=== PATIENT | male | born 1955 | race Caucasian/White ===

== ENCOUNTER 2017-10-13 10:22 | Emergency (ER) | payer OTHER ==
[~2017-10-13] VITALS: Ht 177.8 cm; Wt 88.5 kg
[~2017-10-13 10:22] MED LIST: ALPR1 PO; ASPI81CH PO; BACL10 PO; BLOOD PRESSURE PILL; CYCL10 PO; ESCI20 PO; GABA300 PO; HYDACE5 PO; HYDCOR1TO TOP; METO100ER PO; METPRE4DP PO; OMEPRAZOLE MAGN20 MG PO; TRAZ100 PO; Zithromax250 MG PO
[2017-10-13] MEDS ORDERED: BUPRENORPHINE HC2 MG SL (11:08)
[2017-10-13 11:29] LABS: BASOPHILS ABSOLUTE AUTO 0.11 K/mm3 (0.00-0.23); BASOPHILS PERCENT AUTO 1 % (0-2); EOSINOPHILS ABSOLUTE AUTO 0.79 K/mm3 (0.00-0.68); EOSINOPHILS PERCENT AUTO 9 % (0-6); Hematocrit 43.4 % (37.0-53.0); Hemoglobin 13.5 g/dL (13.5-17.5); IMMATURE GRAN ABSOLUTE AUTO 0.02 K/mm3 (0.00-0.10); IMMATURE GRAN PERCENT AUTO 0 % (0-1); LYMPHOCYTES ABSOLUTE AUTO 3.18 K/mm3 (0.84-5.20); LYMPHOCYTES PERCENT AUTO 36 % (21-46); MONOCYTES ABSOLUTE AUTO 0.94 K/mm3 (0.16-1.47); MONOCYTES PERCENT AUTO 11 % (4-13); Mean Corpuscular HGB 27.2 pg (26.0-34.0); Mean Corpuscular HGB Conc 31.1 g/dL (31.5-36.5); Mean Corpuscular Volume 87 fL (80-100); NEUTROPHILS ABSOLUTE AUTO 3.87 K/mm3 (1.96-9.15); NEUTROPHILS PERCENT AUTO 44 % (41-73); Platelet Count 294 K/mm3 (150-400); RDW Coefficient Variation 15.7 % (11.7-14.2); RDW Standard Deviation 49.4 fL (35.1-46.3); Red Blood Cell Count 4.97 M/mm3 (4.30-5.90); White Blood Cell Count 8.91 K/mm3 (4.00-11.30)
[2017-10-13 11:46] LABS: Alanine Aminotransfer (ALT/SGP 61 U/L (12-78); Albumin/Globulin Ratio 0.6 (0.8-1.8); Alk Phos 117 U/L (50-136); Anion Gap 12 mmol/L (6-16); Aspartate Aminotrans (AST/SGOT 56 U/L (12-37); Bilirubin, Total 0.3 mg/dL (0.1-1.0); Blood Urea Nitrogen 18 mg/dL (8-24); Bun/Creatinine Ratio 15.4 (12.0-20.0); CO2, Blood 17 mmol/L (21-32); Calcium, Blood 8.8 mg/dL (8.5-10.1); Chloride, Blood 113 mmol/L (98-108); Creatinine, Blood 1.17 mg/dL (0.60-1.20); Globulin, Blood 4.7 g/dL (2.2-4.0); Glomerular Filtration Rate >60 (60-); Glucose, Blood 93 mg/dL (70-99); Potassium, Blood 4.2 mmol/L (3.5-5.5); Sodium, Blood 142 mmol/L (136-145); Total Protein, Blood 7.7 g/dL (6.4-8.2)
== END 2017-10-13 13:08 | disposition home or self-care (01) ==
LOC: ER 10:22
PROVIDERS: Emergency Medicine
DX: R41.82 Altered mental status, unspecified (principal); T40.4X5A Adverse effect of other synthetic narcotics, initial encounter; Z79.899 Other long term (current) drug therapy; Z79.891 Long term (current) use of opiate analgesic; Z79.82 Long term (current) use of aspirin; Z79.52 Long term (current) use of systemic steroids; Z79.2 Long term (current) use of antibiotics; J44.9 Chronic obstructive pulmonary disease, unspecified; I25.2 Old myocardial infarction; F17.210 Nicotine dependence, cigarettes, uncomplicated
CPT/HCPCS: 36415; 80053; 82140; 85025; 93005; 93010; 94640; 99283; J7030

== ENCOUNTER 2018-01-11 10:11 | Emergency (ER) | payer OTHER ==
[~2018-01-11] VITALS: Ht 177.8 cm; Wt 81.7 kg
[~2018-01-11 10:11] MED LIST changes: +BUPRENORPHINE HC2 MG SL
== END 2018-01-11 11:21 | disposition left against medical advice (07) ==
LOC: ER 10:11
DX: L20.9 Atopic dermatitis, unspecified (principal); Z76.5 Malingerer [conscious simulation]; J44.9 Chronic obstructive pulmonary disease, unspecified; I25.2 Old myocardial infarction; F17.210 Nicotine dependence, cigarettes, uncomplicated; Z79.899 Other long term (current) drug therapy; Z79.82 Long term (current) use of aspirin; Z86.73 Personal history of transient ischemic attack (TIA), and cerebral infarction without residual deficits
CPT/HCPCS: 99282

== ENCOUNTER 2018-09-26 02:23 | Inpatient (IN) | payer MEDICARE, OTHER ==
[~2018-09-26] VITALS: Ht 172.7 cm; Wt 81.4 kg
[2018-09-26 03:08] LABS: BASOPHILS ABSOLUTE AUTO 0.12 K/mm3 (0.00-0.23); BASOPHILS PERCENT AUTO 1 % (0-2); EOSINOPHILS ABSOLUTE AUTO 0.45 K/mm3 (0.00-0.68); EOSINOPHILS PERCENT AUTO 2 % (0-6); Hematocrit 42.2 % (37.0-53.0); Hemoglobin 13.3 g/dL (13.5-17.5); IMMATURE GRAN ABSOLUTE AUTO 0.14 K/mm3 (0.00-0.10); IMMATURE GRAN PERCENT AUTO 1 % (0-1); LYMPHOCYTES ABSOLUTE AUTO 2.42 K/mm3 (0.84-5.20); LYMPHOCYTES PERCENT AUTO 11 % (21-46); MONOCYTES ABSOLUTE AUTO 1.39 K/mm3 (0.16-1.47); MONOCYTES PERCENT AUTO 6 % (4-13); Mean Corpuscular HGB 28.6 pg (26.0-34.0); Mean Corpuscular HGB Conc 31.5 g/dL (31.5-36.5); Mean Corpuscular Volume 91 fL (80-100); Mean Platelet Volume 10.2 fL (9.1-12.4); NEUTROPHILS PERCENT AUTO 80 % (41-73); Platelet Count 269 K/mm3 (150-400); RDW Standard Deviation 46.8 fL (35.1-46.3); Red Blood Cell Count 4.65 M/mm3 (4.30-5.90); White Blood Cell Count 22.12 K/mm3 (4.00-11.30)
[2018-09-26 03:29] LABS: Alanine Aminotransfer (ALT/SGP 74 U/L (12-78); Albumin, Blood 2.9 g/dL (3.4-5.0); Albumin/Globulin Ratio 0.7 (0.8-1.8); Alk Phos 198 U/L (50-136); Anion Gap 7 mmol/L (6-16); Aspartate Aminotrans (AST/SGOT 63 U/L (12-37); Bilirubin, Total 0.4 mg/dL (0.1-1.0); Blood Urea Nitrogen 16 mg/dL (8-24); Bun/Creatinine Ratio 13.3 (12.0-20.0); CO2, Blood 23 mmol/L (21-32); Calcium, Blood 8.1 mg/dL (8.5-10.1); Chloride, Blood 111 mmol/L (98-108); Globulin, Blood 4.1 g/dL (2.2-4.0); Glomerular Filtration Rate >60 (60-); Glucose, Blood 124 mg/dL (70-99); Potassium, Blood 3.6 mmol/L (3.5-5.5); Sodium, Blood 141 mmol/L (136-145); Troponin I <0.015 ng/mL (0.000-0.040)
[2018-09-26 03:49] LABS: Influenza A Negative (NEGATIVE); Influenza B Negative (NEGATIVE)
[2018-09-26 03:53] LABS: Source, Urine Clean Catch
[2018-09-26 03:55] LABS: Bilirubin, Urine Neg (Neg); Blood, Urine 1+ (Neg); Glucose Qualitative, Urine Neg (Neg); Ketones, Urine 1+ (Neg); Leukocyte Esterase, Urine 1+ (Neg); Nitrite, Urine Neg (Neg); Protein, Urine 3+ (Neg); Urobilinogen, Urine 1+ (Normal); pH, Urine 6.5 (5.0-8.0)
[2018-09-26 04:05] LABS: Appearance, Urine Clear (Clear); Color, Urine Yellow (P-Yellow); Red Blood Cells, Urine Rare /hpf (0-2); White Blood Cells, Urine 0-2 /hpf (0-5)
[2018-09-26 04:06] LABS: Bacteria Rare /hpf; Squamous Epithelial Cells Few /hpf (Few)
[2018-09-26] MEDS ORDERED: ATOR40TA PO (08:48)
[2018-09-26] MEDS ORDERED: LISI20 PO (08:49)
[2018-09-26] MEDS ORDERED: FAMO20 PO (08:50)
[2018-09-26] MEDS ORDERED: OXYC5 PO (08:50)
[2018-09-26] MEDS ORDERED: Miralax17 GM PO (08:54)
--- NOTE | 2018-09-26 16:26 | NUR ---
HANDOFF/SHIFT SUMMARY 63 YR OLD MALE TRANSFERED UP FROM ED. HANDOFF REPORT GIVEN FROM ED NURSE ARAM. PT TRANSERED WNL TO MEDICAL FLOOR AND ORIENTED TO UNIT. PT HAS A HX: OF CVA, COPD, HEPATITIS, CA, HTN, CAD. THIS TIME ADMITTED FOR SEPSIS. HE IS A FULL CODE. 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 REGULAR DIET FOR NOW. UP IN CHAIR TO EAT FOR NOW UNTIL SPEECH SWALLOW EVAL. CURRENT SMOKER - 2 CIGS PER DAY. IV INFILTRATED IN LEFT HAND. NEW IV PLACED IN RT. FOREARM. WE ARE STANDBY ASSIST FOR NOW PT IS WEAK AND DOES NOT KNOW HIS OWN LIMITATIONS. BED ALARM IS ON. HE REQUIRES THERAPEUTIC COMMUNICATION IN SIMPLE LANGUAGE WITH EXPLANATIONS OF CARE PROVIDED HE CAN BECOME ANXIOUS AND OVERWHELMED WITH COMPLEXITY OR NEW EXPERIENCES ( HX:STROKE).
--- NOTE | 2018-09-27 03:37 | NUR ---
09/27/18 0325 PT RANG AND C/O NAUSEA. NO ANTI-EMETIC ON ORDER AND OFFERED TO GET 7-UP AND WILL CALL MD FOR MED. PT BECAME ANGRY AND STATES "YOU THINK YOU ARE SPECIAL AND CAN BOSS ME AROUND!' AT BEDSIDE AND TRYING TO CONSOLE HIM. YELLING AT RN WITH PROFANITY. RAFAEL CAGLE GIVEN PER REQUEST.
[2018-09-27 07:57] LABS: BASOPHILS ABSOLUTE AUTO 0.04 K/mm3 (0.00-0.23); BASOPHILS PERCENT AUTO 0 % (0-2); EOSINOPHILS PERCENT AUTO 0 % (0-6); Hematocrit 42.8 % (37.0-53.0); Hemoglobin 13.4 g/dL (13.5-17.5); IMMATURE GRAN ABSOLUTE AUTO 0.85 K/mm3 (0.00-0.10); IMMATURE GRAN PERCENT AUTO 3 % (0-1); LYMPHOCYTES ABSOLUTE AUTO 1.84 K/mm3 (0.84-5.20); LYMPHOCYTES PERCENT AUTO 6 % (21-46); MONOCYTES ABSOLUTE AUTO 1.24 K/mm3 (0.16-1.47); MONOCYTES PERCENT AUTO 4 % (4-13); Mean Corpuscular HGB 28.2 pg (26.0-34.0); Mean Corpuscular HGB Conc 31.3 g/dL (31.5-36.5); Mean Corpuscular Volume 90 fL (80-100); NEUTROPHILS ABSOLUTE AUTO 24.86 K/mm3 (1.96-9.15); NEUTROPHILS PERCENT AUTO 86 % (41-73); Platelet Count 233 K/mm3 (150-400); RDW Coefficient Variation 14.1 % (11.7-14.2); RDW Standard Deviation 46.6 fL (35.1-46.3); Red Blood Cell Count 4.75 M/mm3 (4.30-5.90); White Blood Cell Count 28.83 K/mm3 (4.00-11.30)
[2018-09-27 08:32] LABS: Alanine Aminotransfer (ALT/SGP 68 U/L (12-78); Albumin, Blood 2.6 g/dL (3.4-5.0); Albumin/Globulin Ratio 0.6 (0.8-1.8); Alk Phos 188 U/L (50-136); Anion Gap 7 mmol/L (6-16); Aspartate Aminotrans (AST/SGOT 55 U/L (12-37); Bilirubin, Total 0.4 mg/dL (0.1-1.0); Blood Urea Nitrogen 21 mg/dL (8-24); Bun/Creatinine Ratio 22.5 (12.0-20.0); CO2, Blood 23 mmol/L (21-32); Calcium, Blood 8.7 mg/dL (8.5-10.1); Chloride, Blood 112 mmol/L (98-108); Creatinine, Blood 0.93 mg/dL (0.60-1.20); Globulin, Blood 4.6 g/dL (2.2-4.0); Glomerular Filtration Rate >60 (60-); Glucose, Blood 160 mg/dL (70-99); Potassium, Blood 4.3 mmol/L (3.5-5.5); Sodium, Blood 142 mmol/L (136-145); Total Protein, Blood 7.2 g/dL (6.4-8.2)
--- NOTE | 2018-09-27 10:14 | NUR ---
ADVISED PATIENT NOT ON TOPROL OR GABAPENTIN, TAKES LISINOPRIL AND LIPITOR. ADVISED HEARST RATE IN 60'S SINCE BEEN HERE. GIVE LISINOPRIL 10 MG AND LIPTITOR 40 MG.
--- NOTE | 2018-09-27 12:41 | NUR ---
PATIENT ATE BREAKFAST AND LUNCH 100% WITHOUT C/O. WHEN RN WHEN TO TAKE AWAY LUNCH TRAY PATIENT STS "I DON'T THINK FOOD IS GOING IN RIGHT PLACE. I CAN'T EAT." PER THIS HAS BEEN GOING ON FOR MONTHS. NPO TILL SPEECH EVAL. PATIENT AND S.O. AWARE NOTHING BY MOUTH.
--- NOTE | 2018-09-27 13:17 | NUR ---
REQUEST TIMES 3 TO GO OUTSIDE. GETS W/C. STANDBY ASSIST TO W/C THEN WHEELING PATIENT TO OUTSIDE.
--- NOTE | 2018-09-27 13:57 | NUR ---
[facility] CALLED AND NOTIFIED STAFF TO LET DR. VALENCIA HE DOES NOT NEED TO SEE PATIENT.
--- NOTE | 2018-09-27 15:40 | NUR ---
AT ABOUT 1515 PATIENT RINGS FOR PAIN MEDS. WHEN ASKED WHAT HE NEEDS STS " I ACCIDENTLY PUSHED THE BUTTON. AT ABOUT 1530 PHYSICAL THERAPY GOES IN AND PATIENT REFUSES THERAPY SAYING, "I'M IN PAIN AND DIZZY." WHEN RN GOES BACK IN AND TALKS TO PATIENT DENIES PAIN. GOES BACK TO SLEEP. SENIOR FRONT END DEVELOPER NOTIFIED PATIENT NEEDS TO COOPERATE WITH PHYSICAL THERAPY OR SNF WILL NOT ACCEPT.
--- NOTE | 2018-09-27 18:04 | NUR ---
ALERT. SPEECH AT TIMES SLURRED. ONE PERSON ASSIST TO CHAIR. GETS ANGERY VERY EASILY. SEEMS TO TELL ONE PERSON ONE THINK AND ANOTHER STAFF MEMBER SOMETHING ELSE. UNLABORED RESPIRATIONS. SPEECH EVAL DONE. BED IN LOW POSITION. CALL LIGHT WITHIN REACH. [facility].
--- NOTE | 2018-09-28 00:37 | NUR ---
PT REFUSING FLUIDS WENT IN TO PT ROOM TO SWITCH IV FLUIDS FROM ANTIBIOTICS BACK TO CONTINUOUS LR'S. PT ASKED WHAT I WAS DOING AND I EXPLAINED TO HIM THAT I WAS SWITCHING HIM BACK TO HIS MAINTENANCE FLUIDS. PT RESPONDED "NOPE, NO MORE FLUIDS". THIS RN ATTEMPTED TO EXPLAIN MD ORDERS FOR IV FLUIDS AND PT BECAME COMPLETELY IRRATE AND BEGAN SCREAMING AT THIS RN. PT SCREAMED "YOU GET THE HELL OUT OF MY ROOM. YOU DON'T TELL ME WHAT TO DO. LEAVE ME ALONE AND SHUT THE DOOR". EXPLAINED TO PT THAT HIS BEHAVIOR IS INAPPROPRIATE AND PT CONTINUED TO YELL. LEFT PT ROOM. SOON AFTER PT GOT UP AND SLAMMED HIS DOOR SO HARD THAT GLASS AT NURSES STATION SHOOK AND STARTLED STAFF. EXPLAINED INCIDENET TO FLAVOR TANK TENDER WHO STATED SHE WOULD NOTIFY SECURITY OF PT BEHAVIOR.
--- NOTE | 2018-09-28 04:54 | NUR ---
HAND DECORATOR SUMMARY NO ACUTE CHANGES THIS SHIFT. PT AAOX3. STANDBY ASSIST TO BSC. AT START OF SHIFT PT REPORTED HAVING SEVERAL LOOSE STOOLS AND REQUESTED SOMETHING FOR DIARRHEA. SPOKE TO DR WOLFF WHO GAVE ORDER FOR PROBIOTICS, IMODIUM, AND TO CHECK FOR C DIFF. WHEN PT NOTIFIED THIS RN THAT HE HAD PRODUCED A STOOL SAMPLE, THE STOOL WAS NOT LOOSE OR LIQUID BUT SOFT AND BROWN. BECAUSE OF THIS, SAMPLE WAS NOT COLLECTED FOR C DIFF AT THIS TIME. PT HAD AN ANGRY VERBAL OUTBURST WHEN THIS RN ATTEMPTED TO SWITCH PT FROM IV ABX BACK TO MAINTENANCE FLUIDS. SEE PREVIOUS NOTE FOR MORE DETAILS. NO OTHER CHANGES. PT DENIES PAIN, SOB, N/V. PT HAS SLEPT MOST OF NIGHT. WILL CONTINUE TO MONITOR.
--- NOTE | 2018-09-28 06:29 | NUR ---
WENT IN TO PT'S ROOM TO TAKE MORNING VITALS AND TO GIVE PT MORNING MEDS. PT ALLOWED THIS RN TO OBTAIN VITAL SIGNS BUT REFUSED MORNING MEDICATIONS. PT STATED "I'M NOT TAKING ANY OTHER MEDS UNTIL I TALK TO A DOCTOR". THIS RN EXPLAINED THE IMPORTANCE OF ANTIBIOTICS DUE TO HIS ADMITTING DX OF SEPSIS. PT STILL REFUSED AND BEGAIN TELLING THIS NURSE "WHY DON'T YOU LEAVE ME THE HELL OUT OF HERE". I WAS FINISHING CHARTING ON THE COMPUTER IN THE ROOM THE PT CONTINUALLY REPEATED "GET THE HELL OUT OF HERE". THIS RN LEFT THE ROOM THE PT SAID "ASSHOLE". NOTIFIED FRUIT STUFFER SHANIQUA OF PT'S CONTINUED INAPPROPRIATE BEHAVIOR. SHANIQUA NOTIFIED SECURITY TO HAVE THEM SPEAK WITH THE PT.
--- NOTE | 2018-09-28 10:30 | NUR ---
REFUSES TO LET HOUSEKEEPING CLEAN ROOM.
--- NOTE | 2018-09-28 10:50 | NUR ---
AND PATIENT ST WANT TO GO OUTSIDE. ADVISE TO GET W/C. STS WILL GET ONE.
--- NOTE | 2018-09-28 11:56 | NUR ---
PER PATIENT WALKED W/WALKER TO ELEVATORS ON THIS FLOOR THEN USED W/C.
--- NOTE | 2018-09-28 11:59 | NUR ---
LEFT MESSAGE ON PATIENT C/O MOUTH PAIN, ROOF OF MOUTH LITTLE WHITE. AWAITING ORDERS.
--- NOTE | 2018-09-28 18:24 | NUR ---
ALERT. FORGETFUL. HAS BEEN COOPERATIVE. WALK HALLWAY ONCE WITH P.T., ONCE W/BOWLING ALLEY FLOORS INSTALLER AND ONCE W/. RT LISA BURN SCAB CAME OFF IN SHOWER. ANTIBOTIC OINTMENT, NONADHERING DRESSING W/KERLIX APPLIED. SCABS TO DORSUM FOOT. UNLABORED RESPIRATIONS. ABLE TO MAKE NEEDS KNOWN. WCTM
--- NOTE | 2018-09-29 03:51 | NUR ---
SHIFT SUMMARY: 63 Y/O MALE RESTED COMFORTABLY ALL EVENING. PT DENIES PAIN, SLIGHT NAUSEA FEELING MID MORNING WHICH QUICKLY CLEARED WITH REST. PT HAPPY AND COOPERATIVE WITH NO BEHAVORIAL ISSUES NOTED BY THIS NURSE. PTS RIGHT CALF DRESSING DRY AND INTACT, SCAB TO RIGHT ANTERIOR FOOT WELL APPROXIMATED. PT WEARING O2 AT 2L/M PER NASAL CANNULA WITH SATS 93%. PTS BED ALARM APPLIED, BED LOW POSITION, CALL LIGHT AT SIDE.
--- NOTE | 2018-09-29 05:17 | NUR ---
0435 PT C/O ONGOING NAUSEA THIS AM, DR CAMP (ELECTRICAL MANUFACTURING ENGINEER) NOTIFIED WITH ORDERS FOR ZOFRAN 4MG IVP X1.
[2018-09-29 05:43] LABS: BASOPHILS ABSOLUTE AUTO 0.03 K/mm3 (0.00-0.23); BASOPHILS PERCENT AUTO 0 % (0-2); EOSINOPHILS ABSOLUTE AUTO 0.01 K/mm3 (0.00-0.68); EOSINOPHILS PERCENT AUTO 0 % (0-6); Hematocrit 36.4 % (37.0-53.0); Hemoglobin 11.6 g/dL (13.5-17.5); IMMATURE GRAN ABSOLUTE AUTO 0.24 K/mm3 (0.00-0.10); IMMATURE GRAN PERCENT AUTO 1 % (0-1); LYMPHOCYTES ABSOLUTE AUTO 2.63 K/mm3 (0.84-5.20); LYMPHOCYTES PERCENT AUTO 15 % (21-46); MONOCYTES ABSOLUTE AUTO 1.14 K/mm3 (0.16-1.47); MONOCYTES PERCENT AUTO 7 % (4-13); Mean Corpuscular HGB 28.2 pg (26.0-34.0); Mean Corpuscular HGB Conc 31.9 g/dL (31.5-36.5); Mean Corpuscular Volume 88 fL (80-100); Mean Platelet Volume 10.8 fL (9.1-12.4); NEUTROPHILS ABSOLUTE AUTO 13.02 K/mm3 (1.96-9.15); NEUTROPHILS PERCENT AUTO 76 % (41-73); Platelet Count 288 K/mm3 (150-400); RDW Coefficient Variation 14.5 % (11.7-14.2); RDW Standard Deviation 46.4 fL (35.1-46.3); Red Blood Cell Count 4.12 M/mm3 (4.30-5.90); White Blood Cell Count 17.07 K/mm3 (4.00-11.30)
[2018-09-29 06:11] LABS: Albumin, Blood 2.3 g/dL (3.4-5.0); Anion Gap 7 mmol/L (6-16); Blood Urea Nitrogen 26 mg/dL (8-24); Bun/Creatinine Ratio 31.8 (12.0-20.0); CO2, Blood 24 mmol/L (21-32); Chloride, Blood 111 mmol/L (98-108); Creatinine, Blood 0.82 mg/dL (0.60-1.20); Glomerular Filtration Rate >60 (60-); Glucose, Blood 142 mg/dL (70-99); Phosphorus, Blood 3.3 mg/dL (2.5-4.9); Potassium, Blood 3.8 mmol/L (3.5-5.5); Sodium, Blood 142 mmol/L (136-145)
--- NOTE | 2018-09-29 11:09 | NUR ---
NOTIFIED PATIENT WANTS SOMETHING STRONGER FOR PAIN AND WOULD BE WILLING TO GIVE UP XANAX FOR STRONGER PAIN MED. MD WILL CHECK CHART.
--- NOTE | 2018-09-29 12:48 | NUR ---
PATIENT AND BACK FROM GOING OUTSIDE. HAS PAPER TOWELS ON ELBOW HELD IN PLACE BY SUKHDEEP. WHEN ASKED ABOUT IT STS"CUT MYSELF MOVING TOOLS AROUND IN CAR." ADVISED WILL LOOK AT IT WHEN HE IS DONE EATTING.
--- NOTE | 2018-09-29 15:53 | NUR ---
PATIENT NOT IN ROOM. WHEN PATIENT NOT SLEEPING SEEMS TO BE OUTSIDE WITH .
--- NOTE | 2018-09-29 18:53 | NUR ---
PATIENT STS TORADOL WORKED WELL FOR HIS PAIN.
--- NOTE | 2018-09-30 02:33 | NUR ---
PER FRANCISCO GARCIA RN; PT DOES NOT NEED TO BE IN ISOLATION.
--- NOTE | 2018-09-30 07:53 | NUR ---
SHIFT SUMMARY: 63 Y/O MALE RESTED COMFORTABLY ALL NIGHT WITH SLEEPING IN LOUNGE CHAIR BESIDE HIM. PT IS ALERT AND ORIENTED X 2, ABLE TO FOLLOW SIMPLE VERBAL COMMANDS. PT STATED, "I ONLY HAVE A THIRD GRADE EDUCATION AND HAVE TROUBLE READING AND WRITING ITEMS SOMETIMES". THIS NURSE PROVIDED LISTENING EAR. PTS IS EAGER TO RETURN HOME (PT IS CURRENTLY HOMELESS AND LIVES OUT HIS VEHICLE). PT VERY RESPECTFUL AND KIND TO STAFF ALL NIGHT. PTS RIGHT CALF DRESSING DRY AND INTACT. PTS RIGHT ANTERIOR FOOT SCABS DRY AND INTACT. PT DENIES NAUSEA. PT MEDICATED FOR CHRONIC BACK PAIN WITH NORCO X 2 WITH RELIEF FELT. PT HOPING TO BE DISCHARGED TODAY. PTS BED ALARM APPLIED LAST NIGHT, BED LOW POSITION, CALL LIGHT AT SIDE.
[2018-09-30 08:18] LABS: BASOPHILS ABSOLUTE AUTO 0.03 K/mm3 (0.00-0.23); BASOPHILS PERCENT AUTO 0 % (0-2); EOSINOPHILS ABSOLUTE AUTO 0.04 K/mm3 (0.00-0.68); EOSINOPHILS PERCENT AUTO 0 % (0-6); Hematocrit 39.9 % (37.0-53.0); Hemoglobin 12.6 g/dL (13.5-17.5); IMMATURE GRAN PERCENT AUTO 2 % (0-1); LYMPHOCYTES ABSOLUTE AUTO 3.53 K/mm3 (0.84-5.20); LYMPHOCYTES PERCENT AUTO 21 % (21-46); MONOCYTES ABSOLUTE AUTO 1.42 K/mm3 (0.16-1.47); MONOCYTES PERCENT AUTO 8 % (4-13); Mean Corpuscular HGB 28.3 pg (26.0-34.0); Mean Corpuscular HGB Conc 31.6 g/dL (31.5-36.5); Mean Corpuscular Volume 90 fL (80-100); Mean Platelet Volume 10.6 fL (9.1-12.4); NEUTROPHILS ABSOLUTE AUTO 11.73 K/mm3 (1.96-9.15); NEUTROPHILS PERCENT AUTO 68 % (41-73); Platelet Count 294 K/mm3 (150-400); RDW Coefficient Variation 14.4 % (11.7-14.2); RDW Standard Deviation 46.4 fL (35.1-46.3); Red Blood Cell Count 4.46 M/mm3 (4.30-5.90); White Blood Cell Count 17.15 K/mm3 (4.00-11.30)
[2018-09-30] MEDS ORDERED: ALBU2.5V5 NEB (12:46)
[2018-09-30] MEDS ORDERED: Norco 10-325 T1 EACH PO (12:47)
[2018-09-30] MEDS ORDERED: VISBIOME 112.51 EACH PO (12:48)
[2018-09-30] MEDS ORDERED: PRED20 PO (12:49)
[2018-09-30] MEDS ORDERED: NYST100000 PO (12:49)
[2018-09-30] MEDS ORDERED: TIOT18 INH (12:49)
[2018-09-30] MEDS ORDERED: Augmentin 875-1 EACH PO (12:49)
[2018-09-30] MEDS ORDERED: PRED10 PO (12:52)
[2018-09-30] MEDS ORDERED: PRED5 PO (12:52)
--- NOTE | 2018-09-30 14:47 | NUR ---
DISCHARGE NOTE- PT DISCHARGED TO [facility]. CALLED AND ATTEMPTED TO GIVE REPORT AT THE TIME PT LEFT, DID NOT RECIEVE AN ANSWER. WILL ATTEMPT TO CALL AT A LATER TIME. PT ALERT AND ORIENTED TO SELF AND FAMILY. PT HAS Hx CVA. BP ELEVATED THIS MORNING PRIOR TO MORNING BP MEDS.
== END 2018-09-30 14:41 | DRG 871 ==
LOC: ER 02:23 → MEDS 06:26 → ENPENDDIS 09-30 10:39 → MEDS 09-30 14:41
PROVIDERS: Emergency Medicine; Internal Medicine; ADMIT Internal Medicine
DX: A41.9 Sepsis, unspecified organism (principal); J69.0 Pneumonitis due to inhalation of food and vomit; J44.1 Chronic obstructive pulmonary disease with (acute) exacerbation; B37.0 Candidal stomatitis; F11.20 Opioid dependence, uncomplicated; I25.10 Atherosclerotic heart disease of native coronary artery without angina pectoris; I25.2 Old myocardial infarction; I10 Essential (primary) hypertension; F41.9 Anxiety disorder, unspecified; K59.00 Constipation, unspecified; I69.328 Other speech and language deficits following cerebral infarction; I69.391 Dysphagia following cerebral infarction; E78.5 Hyperlipidemia, unspecified; F17.210 Nicotine dependence, cigarettes, uncomplicated
CPT/HCPCS: 36415; 71046; 80053; 80069; 81001; 83605; 84145; 84484; 85025; 87040; 87086; 87804; 92610; 93005; 93010; 94640; 94760; 96365; 96366; 96375; 97110; 97116; 97161; 97530; 99285-25; J0295; J1100; J1650; J1885; J1956; J2405; J7050; J7120; J7512

== ENCOUNTER 2018-11-22 11:25 | Emergency (ER) | payer MEDICARE, OTHER ==
[~2018-11-22] VITALS: Ht 177.8 cm; Wt 74.8 kg
[~2018-11-22 11:25] MED LIST changes: +ALBU2.5V5 NEB; +ATOR40TA PO; +Augmentin 875-1 EACH PO; +FAMO20 PO; +LISI20 PO; +Miralax17 GM PO; +NYST100000 PO; +Norco 10-325 T1 EACH PO; +OXYC5 PO; +PRED10 PO; +PRED20 PO; +PRED5 PO; +TIOT18 INH; +VISBIOME 112.51 EACH PO
[2018-11-22] MEDS ORDERED: KETO10 PO (13:32)
== END 2018-11-22 13:50 | disposition home or self-care (01) ==
LOC: ER 11:25
DX: M47.897 Other spondylosis, lumbosacral region (principal); Z79.82 Long term (current) use of aspirin; Z79.899 Other long term (current) drug therapy; Z86.73 Personal history of transient ischemic attack (TIA), and cerebral infarction without residual deficits; J44.9 Chronic obstructive pulmonary disease, unspecified; F17.210 Nicotine dependence, cigarettes, uncomplicated
CPT/HCPCS: 74176; 96372; 99283-25; J1885